=== PATIENT | male | born 2000 | race Caucasian/White ===

== ENCOUNTER 2021-03-22 18:55 | Emergency (ER) | payer OTHER, MEDICAID, SELFPAY ==
[2021-03-22 19:05] VITALS: BP 115/67; PULSE 79; RESP 20; TEMP 37.1; O2SAT 100
--- NOTE | 2021-03-22 19:33 | ED.GENADULT ---
HPI - General Adult General Chief complaint: Skin/Abscess/Foreign Body Stated complaint: Sore Throat, body rash, dizziness Time Seen by Provider: 03/22/21 19:33 Source: patient and RN notes reviewed Mode of arrival: ambulatory Limitations: no limitations History of Present Illness HPI narrative: 20-year-old male presents with complaints of sore throat and raised skin color, and itching rash for the past 2 days. Gunner reports increasing sore throat, itching to rash, and intermittent dizziness. Ibuprofen and Benadryl last on 03/21/2021 without relief. No high fevers, drooling, neck or throat swelling. Pain is bilateral. Hurts to swallow. Exacerbation factors consist of eating and drinking. No rhinorrhea. Nasal congestion. No voice change. No nausea, vomiting, or abdominal pain. Tolerating liquids well. Denies chills, dyspnea, difficulty swallowing, jaw pain, dental pain, facial pain, and foreign body sensation. Denies loss of consciousness, syncopal episodes, or seizure activities. Remains active. The patient reports he has not been diagnosed with COVID-19. The patient reports he is not waiting for the results of a COVID-19 lab test. The patient reports he does not have weakness, fatigue, or myalgia. The patient reports he does not have a new or worsening cough or shortness of breath. The patient reports he does not have any loss of taste or smell and diarrhea. Denies recent traveling. Denies concerns for COVID-19 or exposures. At this time, the patient is not suspected of having COVID-19. Some parts of this dictation were generated by voice recognition software and may contain typographical and/or grammatical inaccuracies. Related Data Allergies Allergy/AdvReac Type Severity Reaction Status Date / Time No Known Allergies Allergy Verified 03/22/21 19:34 Review of Systems Review of Systems: CONSTITUTIONAL: Denies fever, chills, sweats. EYES: Denies visual changes, redness, discharge. ENT: Denies rhinorrhea, congestion, otalgia. Complains of sore throat. CARDIOVASCULAR: Denies chest pain, palpitations, edema. RESPIRATORY: Denies dyspnea, wheezing, cough. GASTROINTESTINAL: Denies abdominal pain, nausea, vomiting, diarrhea. GENITOURINARY: Denies dysuria, hematuria, abnormal discharge. SKIN: Denies rash or itching. Complains of raised, skin color, and itching rash. MUSCULOSKELETAL: Denies acute back pain, joint pain, or myalgia. NEUROLOGIC: Denies numbness or focal weakness. Complains of dizziness-resolved now. PSYCHIATRIC: Denies anxiety or depression. All systems reviewed & are unremarkable except as noted in HPI and below. [facility] Past Medical History Medical History (Updated 03/23/21 @ 00:01 by Brionna Farfan) Fracture, sacrum/coccyx Surgical History Surgical History (Updated 03/22/21 @ 20:01 by CHANNING Vallecillo) No significant past surgical history Family History Family History (Updated 03/22/21 @ 20:02 by CHANNING Vallecillo) Father Alive and well Mother Alive and well Social History Social History (Updated 03/22/21 @ 20:06 by CHANNING Vallecillo) Tobacco type: e-cigarettes/vaping Second hand tobacco smoke exposure: No Additional smoking assessment comments: Sebastián reports vaping for 2.5 years, smokes ciagarettes for 1.5 years prior Alcohol intake: never Substance use: never Substance use type: does not use Living arrangements: with family Occupation/Education: occupation Gender identity (if verbalized by the patient): Male Comments At time of signature, agree with the nurse past medical, surgical, social, and family history. There is no relevant family history pertinent to the presenting complaint. Exam Narrative: GENERAL: This is a well-nourished, well-developed patient, in no apparent distress. Speaks in full sentences without deficits and ambulates with steady gait without dyspnea. HEAD: Normocephalic, atraumatic. EYES: PERRL. Sclera clear/white.
== END 2021-03-22 20:00 | disposition home or self-care (01) ==
PROVIDERS: Emergency Provider Nurse Practitioner Family
DX: B08.1 Molluscum contagiosum (principal); J02.9 Acute pharyngitis, unspecified; H66.001 Acute suppurative otitis media without spontaneous rupture of ear drum, right ear; F17.200 Nicotine dependence, unspecified, uncomplicated
CPT/HCPCS: 87081; 87880; 99203; G0463